=== PATIENT | female | born 1990 ===

== ENCOUNTER 2017-09-01 11:34 | Emergency (ER) | payer OTHER ==
[2017-09-01 11:42] VITALS: BP 129/82
--- NOTE | 2017-09-01 12:15 | ER Document Report ---
ED Medical Screen (RME) - General Chief Complaint: OB Problem (<20wks) Stated Complaint: INCREASE IN MOVEMENT,SPORADIC Time Seen by Provider: 09/01/17 12:07 Notes: Patient is 19 weeks and 6 days in her second . She was sitting at her desk at work this morning when she noted increased activity. This lasted for about an hour and then movement returned to normal and has been normal ever since. Patient has not had any caffeine this morning. Has not had a fever. Has not been sick or felt bad in any way. Has not had any vaginal bleeding or spotting or cramping of the pelvic region. - Related Data Allergies/Adverse Reactions: Latex, Natural Rubber Allergy (Verified 09/01/17 11:35) tramadol Allergy (Verified 09/01/17 11:35) Past Medical History - Social History Chew tobacco use (# tins/day): No Frequency of alcohol use: None Drug Abuse: None Past Surgical History: Reports: Hx Oral Surgery - wisdom teeth Review of Systems - Review of Systems Notes: REVIEW OF SYSTEMS: CONSTITUTIONAL : Denies fever. EENT: Denies eye, ear, nose or mouth or throat pain or other symptoms. CARDIOVASCULAR: Denies chest pain. No palpitations. RESPIRATORY: Denies cough, chest congestion, or shortness of breath. GASTROINTESTINAL: Denies abdominal pain or nausea, vomiting, or diarrhea. GENITOURINARY: Denies difficulty or painful urinating, urinary frequency, blood in urine. MUSCULOSKELETAL: Denies back or neck pain. Denies joint pain or swelling. SKIN: Denies rash or skin lesions. NEUROLOGICAL: Denies LOC or altered mental status. Denies headache. Denies sensory loss or motor deficits. ALL OTHER SYSTEMS REVIEWED AND NEGATIVE. Physical Exam - Vital signs Vitals: Temp Pulse Resp BP Pulse Ox 98.1 F 82 20 129/82 H 100 09/01/17 11:38 09/01/17 11:38 09/01/17 11:38 09/01/17 11:38 09/01/17 11:38 Interpretation: Normal - Notes Notes: PHYSICAL EXAMINATION: GENERAL: Well-appearing, in no acute distress. HEAD: Atraumatic, normocephalic. EYES: Pupils equal round and reactive to light, extraocular movements intact. ENT: oropharynx clear without exudates. Moist mucous membranes. NECK: Normal range of motion, supple. LUNGS: Breath sounds clear and equal bilaterally. HEART: Regular rate and rhythm without murmurs. ABDOMEN: Soft, nontender. Gravid uterus. No guarding or rebound. No masses. BACK: No tenderness throughout entire back. EXTREMITIES: Normal range of motion without pain. NEUROLOGICAL: Normal speech, normal gait. Normal sensory, motor, and reflex exams. Awake, alert, and oriented x3. Cranial nerves normal. PSYCH: Normal mood, normal affect. SKIN: Warm, dry, no rashes. Course - Re-evaluation Re-evalutation: 09/01/17 20:58 Ultrasound was reported to me by the tech as being normal. Only concern was that initially, the fetus had a heart rate of 72 but it was quickly up to 150 and then 117 and then 130 and then 150. I spoke with the OB on-call, Dr. Ramirez, who said that everything sounded fine and that no further workup would be indicated. Patient informed of these findings and the consultation. - Vital Signs Vital signs: Temp Pulse Resp BP Pulse Ox 98.1 F 82 20 129/82 H 100 09/01/17 11:38 09/01/17 11:38 09/01/17 11:38 09/01/17 11:38 09/01/17 11:38 Doctor's Discharge - Discharge Clinical Impression: Normal fetus Condition: Good Disposition: HOME, SELF-CARE Additional Instructions: Normal Exam and Workup At this time, your examination and workup show no significant abnormality. No significant abnormal physical findings are noted. All laboratory, EKG, and imaging (x-ray, CT scans, ultrasound) studies that were ordered show no significant abnormality. Although your examination and all studies that were ordered showed no significant abnormal finding, there are no examinations and no studies that are 100% accurate. There is always the possibility that some abnormality could exist and not be detected with physical examination or within the limits and capabilities of laboratory and other studies. You should return or follow up as you were instructed on your visit today for further evaluation if your symptoms do not resolve. At this time, your ultrasound shows what appears to be completely normal fetus with out any indications of problems or concerns. 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 Return if new or worsening symptoms. FOLLOW-UP CARE: If you have been referred to a physician for follow-up care, call the physician s office for an appointment as you were instructed or within the next two days. If you experience worsening or a significant change in your symptoms, notify the physician immediately or return to the Emergency Department at any time for re-evaluation. Referrals: TARAH HERNANDEZ, DO [Primary Care Provider] - Follow up as needed
--- NOTE | 2017-09-01 14:03 | RADIOLOGY REPORT (SQ) ---
EXAM DESCRIPTION: U/S PROFILE W/O STRESS COMPLETED DATE/TIME: 09/01/2017 1:51 pm REASON FOR STUDY: Abnormal, rapid movement COMPARISON: None. TECHNIQUE: Limited orona-scale realtime and static images of the fetus to measure specified parameter s. LIMITATIONS: None. FINDINGS: HEART RATE: 72 to 150 beats per minute. PREETHI: 12 cm. BREATHING MOVEMENT: 0 points. MOVEMENT: 2 points. POSTURE AND TONE: 2 points. QUALITATIVE PREETHI: 2 points. OTHER: Fluctuating heart rate. IMPRESSION: BIOPHYSICAL PROFILE: 07/17. Trimester of : Third - 28 weeks to delivery COMMENT: BREATHING MOVEMENTS: 2 POINTS: PRESENT 0 POINTS: ABSENT MOTION: 2 POINTS: PRESENT 0 POINTS: ABSENT TONE: 2 POINTS: PRESENT 0 POINTS: ABSENT AMNIOTIC FLUID VOLUME: 2 POINTS: LARGEST POCKET GREATER THAN 2 CM DEPTH. 0 POINTS: NO POCKET OF 2 CM. TECHNICAL DOCUMENTATION: JOB ID: [id number] [employer]- All Rights Reserved Reading location - IP/workstation name: [email or web address]
== END 2017-09-01 14:07 | disposition home or self-care (01) ==
LOC: ER 11:34
DX: O26.92 Pregnancy related conditions, unspecified, second trimester (principal); Z3A.19 19 weeks gestation of pregnancy; Z91.040 Latex allergy status
CPT/HCPCS: 76819; 99283

== ENCOUNTER 2019-12-14 14:16 | Emergency (ER) | payer OTHER ==
[2019-12-14] MEDS ORDERED: EPINEPHRINE INJ/PF 1 MG/1 ML AMPULE IM ONE (14:32)
--- NOTE | 2019-12-14 14:36 | ER Document Report ---
ED Medical Screen (RME) - General Chief Complaint: Allergic Reaction Stated Complaint: POSSIBLE ALLERGIC REACTION Time Seen by Provider: 12/14/19 14:29 Primary Care Provider: TARAH HERNANDEZ DO [Primary Care Provider] - Follow up as needed Mode of Arrival: Wheelchair Information source: Patient Notes: 28-year-old female presented to ED for complaint of allergic reaction to nonlatex gloves. She states she did not realize the gloves were latex she was using them states she did receive Pepcid Decadron and Claritin when it first began itching in her hands. She said since then she developed itchy throat itchy eyes and ears she did have wheezes but she is not wheezing at this time but she still feels like she has a itchy throat. She states she does not smoke drink or use drugs. 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 I have ordered epinephrine heart monitor and she is to be placed in a bed. I have greeted and performed a rapid initial assessment of this patient. A comprehensive ED assessment and evaluation of the patient, analysis of test results and completion of medical decision making process will be conducted by an additional ED providers. - Related Data Allergies/Adverse Reactions: Latex, Natural Rubber Allergy (Verified 12/14/19 14:36) tramadol Allergy (Verified 12/14/19 14:36) Past Medical History Renal/ Medical History: Denies: Hx Peritoneal Dialysis Past Surgical History: Reports: Hx Oral Surgery - wisdom teeth Physical Exam - Vital signs Vitals: Temp Pulse Resp BP Pulse Ox 98.6 F 79 16 134/87 H 100 12/14/19 14:24 12/14/19 14:24 12/14/19 14:24 12/14/19 14:24 12/14/19 14:24 Course - Vital Signs Vital signs: Temp Pulse Resp BP Pulse Ox 98.6 F 79 16 134/87 H 100 12/14/19 14:24 12/14/19 14:24 12/14/19 14:24 12/14/19 14:24 12/14/19 14:24 Doctor's Discharge - Discharge Referrals: TARAH HERNANDEZ DO [Primary Care Provider] - Follow up as needed
--- NOTE | 2019-12-14 15:27 | ER Document Report ---
ED General - General Chief Complaint: Allergic Reaction Stated Complaint: POSSIBLE ALLERGIC REACTION Time Seen by Provider: 12/14/19 14:29 Primary Care Provider: TARAH HERNANDEZ DO [Primary Care Provider] - Follow up as needed Mode of Arrival: Wheelchair - [facility] Notes: 28-year-old female presents with symptoms of an allergic reaction. Patient states she has a known allergy to latex gloves, there was a new brand of gloves that she use today, per the box it was latex and powder free. However shortly after putting them on, she developed symptoms of itchy hands. The itchiness eventually progressed to her inner ears, inside her nostrils, eyes and throat. She had no shortness of breath. No rash. Patient states that she received Pepcid, Decadron and Claritin at work which improved her symptoms. She currently denies complaints. - Related Data Allergies/Adverse Reactions: Latex, Natural Rubber Allergy (Verified 12/14/19 14:36) tramadol Allergy (Verified 12/14/19 14:36) Past Medical History - General Information source: Patient - Social History Smoking Status: Never Smoker Chew tobacco use (# tins/day): No Frequency of alcohol use: None Drug Abuse: None Family History: Reviewed & Not Pertinent Patient has homicidal ideation: No Renal/ Medical History: Denies: Hx Peritoneal Dialysis Past Surgical History: Reports: Hx Oral Surgery - wisdom teeth Review of Systems - Review of Systems Constitutional: No symptoms reported EENT: denies: Difficulty swallowing, Mouth swelling Cardiovascular: No symptoms reported Respiratory: denies: Short of breath Gastrointestinal: No symptoms reported Genitourinary: No symptoms reported Female Genitourinary: No symptoms reported Musculoskeletal: No symptoms reported Skin: denies: Rash Hematologic/Lymphatic: See HPI Neurological/Psychological: No symptoms reported Physical Exam - Vital signs Vitals: Temp Pulse Resp BP Pulse Ox 98.6 F 79 16 134/87 H 100 12/14/19 14:24 12/14/19 14:24 12/14/19 14:24 12/14/19 14:24 12/14/19 14:24 - General General appearance: Appears well, Alert In distress: None - HEENT Head: Normocephalic, Atraumatic Extraocular movements intact: Yes Pupils: PERRL Pharynx: Normal, Other - No stridor. Phonation normal. Neck: Supple - Respiratory Breath sounds: Normal. No: Wheezing - Cardiovascular Rhythm: Regular Heart sounds: Normal auscultation - Abdominal Inspection: No: Obese - Extremities General upper extremity: Normal ROM General lower extremity: Normal ROM - Neurological Neuro grossly intact: Yes Cognition: Normal Orientation: AAOx4 - Psychological Associated symptoms: Normal affect - Skin Skin Temperature: Warm Notes: No urticaria Course - Re-evaluation Re-evalutation: 28-year-old female developed hand itching after wearing a new pair of gloves, known latex allergy. This itchiness sensation eventually progressed to involve her head/neck. Treated initially with Pepcid, Decadron and Claritin which had improvement in her symptoms. On exam she is well-appearing, no stridor, normal phonation, lungs are clear. I do not appreciate any urticaria. She did receive a dose of IM epinephrine prior to my evaluation via the triage process. We will continue short observation. Given that she has received epi and then intend to discharge home. 12/14/19 16:00 Patient has remained stable while in the emergency department, appropriate for discharge at this time. Given the contact related nature of the allergy, do not think full course of steroids is warranted at this time. - Vital Signs Vital signs: Temp Pulse Resp BP Pulse Ox 98.6 F 79 16 134/87 H 97 12/14/19 14:24 12/14/19 14:24 12/14/19 14:24 12/14/19 14:24 12/14/19 15:24 - Diagnostic Test Radiology reviewed: Image reviewed Discharge - Discharge Clinical Impression: Allergic reaction Qualifiers: Encounter type: initial encounter Qualified Code(s): T78.40XA - Allergy, unspecified, initial encounter Disposition: HOME, SELF-CARE Instructions: Acute Allergic Reaction ([facility]) Referrals: TARAH HERNANDEZ, [Primary Care Provider] - Follow up as needed
--- NOTE | 2019-12-14 16:02 | RADIOLOGY REPORT (SQ) ---
EXAM DESCRIPTION: CHEST 2 VIEWS IMAGES COMPLETED DATE/TIME: 12/14/2019 2:47 pm REASON FOR STUDY: Allergic reaction COMPARISON: None. EXAM PARAMETERS: NUMBER OF VIEWS: two views TECHNIQUE: Digital Frontal and Lateral radiographic views of the chest acquired. RADIATION DOSE: NA LIMITATIONS: none FINDINGS: LUNGS AND PLEURA: No opacities, masses or pneumothorax. No pleural effusion. MEDIASTINUM AND HILAR STRUCTURES: No masses or contour abnormalities. HEART AND VASCULAR STRUCTURES: Heart normal size. No evidence for failure. BONES: No acute findings. HARDWARE: None in the chest. OTHER: No other significant finding. IMPRESSION: NO ACUTE RADIOGRAPHIC FINDING IN THE CHEST. TECHNICAL DOCUMENTATION: JOB ID: [id number] [employer]- All Rights Reserved Reading location - IP/workstation name: [email or web address]
[2019-12-14 16:14] VITALS: BP 113/72
== END 2019-12-14 16:14 | disposition home or self-care (01) ==
LOC: ER 14:16
DX: T78.40XA Allergy, unspecified, initial encounter (principal); L29.9 Pruritus, unspecified; X58.XXXA Exposure to other specified factors, initial encounter; Z91.040 Latex allergy status; Z88.6 Allergy status to analgesic agent
CPT/HCPCS: 99284; 96372; 71046; J0171